=== PATIENT | male | born 1960 | race Caucasian/White ===

== ENCOUNTER 2020-12-22 11:53 | Inpatient (IN) | payer OTHER ==
[2020-12-22 12:20] VITALS: BMI 27.4
[2020-12-22] MEDS ORDERED: NICOTINE POLACRILEX 2 MG GUM BUC PRN (13:38)
[2020-12-22] MEDS ORDERED: ONDANSETRON *ODT* 4 MG TABLET SL PRN (13:38)
[2020-12-22] MEDS ORDERED: MAGNESIUM CITRATE 300 ML BOTTLE PO PRN (13:38)
[2020-12-22] MEDS ORDERED: MENTHOL/PHENOL 1 EACH UD MM PRN (13:38)
[2020-12-22] MEDS ORDERED: IBUPROFEN 400 MG TABLET (FP) PO PRN (13:38)
[2020-12-22] MEDS ORDERED: BISMUTH SUBSALICYLATE 524 MG/30 ML PO PRN (13:38)
[2020-12-22] MEDS ORDERED: MAGNESIUM HYDROX 2400MG/30ML ORAL SUSPENSION 30 ML CUP PO PRN (13:38)
[2020-12-22] MEDS ORDERED: ACETAMINOPHEN 325 MG TABLET (FP) PO PRN ×2 (13:38)
[2020-12-22] MEDS ORDERED: MAG HYDROX/AL HYDROX/SIMETH 30 ML UNIT-DOSE CUP PO PRN (13:38)
[2020-12-22] MEDS ORDERED: methaDONE HCL 10 MG TABLET (FOR DETOX USE ONLY) PO ONE (13:38)
[2020-12-22] MEDS ORDERED: cloNIDine HCL 0.1 MG TABLET PO PRN (13:38)
[2020-12-22] MEDS: hydrOXYzine PAMOATE 25 MG CAPSULE (FP) PO SCH ×3 (19:17→22:27)
[2020-12-22] MEDS ORDERED: methaDONE HCL 10 MG TABLET (FOR DETOX USE ONLY) ONE (19:18)
[2020-12-22] MEDS: NICOTINE 21 MG/24 HOURS TOPICAL PATCH TD SCH (19:21)
[2020-12-22] MEDS: INSULIN SLIDING SCALE (NOVOLOG) 1 VIAL SQ SCH ×2 (19:32→22:29)
[2020-12-22] MEDS: THIAMINE HCL 100 MG TABLET (FP) PO SCH (22:27)
[2020-12-22] MEDS: MONTELUKAST NA 10 MG TABLET PO SCH (22:27)
[2020-12-22] MEDS: GABAPENTIN 300 MG CAPSULE PO SCH (22:27)
[2020-12-22] MEDS: INSULIN (LEVEMIR) 100 UNITS/ML UNITS SQ SCH (22:28)
[2020-12-22] MEDS: MELATONIN 5 MG TABLETS PO SCH (22:31)
[2020-12-22] MEDS: ATORVASTATIN CA 80 MG TABLET (FP) PO SCH (22:33)
[2020-12-22] MEDS: ALBUTEROL SO4 HFA INHALER IH PRN (22:36)
[2020-12-23] MEDS: hydrOXYzine PAMOATE 25 MG CAPSULE (FP) PO SCH ×5 (07:03→22:09)
[2020-12-23] MEDS: GABAPENTIN 300 MG CAPSULE PO SCH ×3 (07:03→22:09)
[2020-12-23] MEDS: INSULIN SLIDING SCALE (NOVOLOG) 1 VIAL SQ SCH ×4 (07:23→23:06)
[2020-12-23] MEDS: metFORMIN HCL 500 MG TABLET (FP) PO SCH ×2 (07:23→17:58)
[2020-12-23] MEDS: sitaGLIPtin PHOSPHATE 50 MG TABLET PO SCH ×2 (07:23→17:58)
[2020-12-23] MEDS ORDERED: methaDONE HCL 10 MG TABLET (FOR DETOX USE ONLY) ONE (09:05)
[2020-12-23] MEDS: PANTOPRAZOLE 40 MG TABLET PO SCH (10:37)
[2020-12-23] MEDS: PRENATAL VITAMINS W/ FOLIC ACID TABLET (FP) PO SCH (10:37)
[2020-12-23] MEDS: NICOTINE 21 MG/24 HOURS TOPICAL PATCH TD SCH (10:38)
[2020-12-23] MEDS: ASPIRIN 81 MG CHEWABLE TABLETS PO SCH (10:38)
[2020-12-23 11:54] LABS: HEMATOCRIT 44.7 % (35.4-49); MCH 31.3 pg (25.7-33.7); MCHC 33.5 g/dl (32.0-35.9); MEAN CELL VOLUME 93.3 fl (80-96); MEAN PLT VOLUME 8.5 fl (7.5-11.1); PLATELET COUNT 310 10^3/uL (134-434); RBC 4.79 M/mm3 (4.00-5.60); RDW 14.5 % (11.9-15.9); WHITE BLOOD COUNT 10.6 K/mm3 (4.0-10.0)
[2020-12-23] MEDS ORDERED: INSULIN SLIDING SCALE (NOVOLOG) 1 VIAL SQ ONE (11:56)
[2020-12-23 12:01] LABS: ALBUMIN 3.6 g/dl (3.4-5.0); BLOOD UREA NITROGEN 12.5 mg/dL (7-18); CALCIUM 9.2 mg/dL (8.5-10.1)
[2020-12-23 12:05] LABS: CREATININE 0.7 mg/dL (0.55-1.3)
[2020-12-23 12:06] LABS: TOT PROT 6.9 g/dl (6.4-8.2)
[2020-12-23] MEDS ORDERED: ATORVASTATIN CA 40 MG TABLET (FP) ONE (21:22)
[2020-12-23] MEDS: THIAMINE HCL 100 MG TABLET (FP) PO SCH (22:08)
[2020-12-23] MEDS: ATORVASTATIN CA 80 MG TABLET (FP) PO SCH (22:08)
[2020-12-23] MEDS: MONTELUKAST NA 10 MG TABLET PO SCH (22:09)
[2020-12-23] MEDS: MELATONIN 5 MG TABLETS PO SCH (22:11)
[2020-12-23] MEDS: ALBUTEROL SO4 HFA INHALER IH PRN (22:12)
[2020-12-23] MEDS: INSULIN (LEVEMIR) 100 UNITS/ML UNITS SQ SCH (23:07)
[2020-12-24] MEDS: GABAPENTIN 300 MG CAPSULE PO SCH ×3 (05:37→21:53)
[2020-12-24] MEDS: hydrOXYzine PAMOATE 25 MG CAPSULE (FP) PO SCH ×5 (05:38→21:53)
[2020-12-24] MEDS: sitaGLIPtin PHOSPHATE 50 MG TABLET PO SCH ×2 (06:47→17:54)
[2020-12-24] MEDS: metFORMIN HCL 500 MG TABLET (FP) PO SCH ×2 (06:47→17:54)
[2020-12-24] MEDS: INSULIN SLIDING SCALE (NOVOLOG) 1 VIAL SQ SCH ×4 (06:47→22:46)
[2020-12-24] MEDS ORDERED: INSULIN SLIDING SCALE (NOVOLOG) 1 VIAL SQ ONE (07:30)
[2020-12-24] MEDS ORDERED: methaDONE HCL 10 MG TABLET (FOR DETOX USE ONLY) PO ONE (10:00)
[2020-12-24] MEDS: METHOCARBAMOL 500 MG TABLET PO PRN (10:06)
[2020-12-24] MEDS: ESCITALOPRAM OXALATE 10 MG TABLET PO SCH (10:06)
[2020-12-24] MEDS: PANTOPRAZOLE 40 MG TABLET PO SCH (10:06)
[2020-12-24] MEDS: ASPIRIN 81 MG CHEWABLE TABLETS PO SCH (10:06)
[2020-12-24] MEDS: PRENATAL VITAMINS W/ FOLIC ACID TABLET (FP) PO SCH (10:07)
[2020-12-24] MEDS: NICOTINE 21 MG/24 HOURS TOPICAL PATCH TD SCH (10:07)
[2020-12-24] MEDS ORDERED: COLLOIDAL OATMEAL 1 BAR EACH TP PRN (11:14)
[2020-12-24] MEDS: NICOTINE 10 MG CARTRIDGE (INHALER) IH PRN (13:18)
[2020-12-24] MEDS: PATIENT'S OWN MEDICATION (NON-FORMULARY) (Empagliflozin [Jardiance] 10 MG Tablet) PO SCH (15:08)
[2020-12-24] MEDS: clonazePAM 0.5 MG ODT TABLETS SL PRN (17:57)
[2020-12-24] MEDS: MELATONIN 5 MG TABLETS PO SCH (21:53)
[2020-12-24] MEDS: ATORVASTATIN CA 80 MG TABLET (FP) PO SCH (21:53)
[2020-12-24] MEDS: MONTELUKAST NA 10 MG TABLET PO SCH (21:53)
[2020-12-24] MEDS: THIAMINE HCL 100 MG TABLET (FP) PO SCH (21:53)
[2020-12-24] MEDS: INSULIN (LEVEMIR) 100 UNITS/ML UNITS SQ SCH (22:46)
[2020-12-25] MEDS: GABAPENTIN 300 MG CAPSULE PO SCH ×3 (06:05→22:02)
[2020-12-25] MEDS: metFORMIN HCL 500 MG TABLET (FP) PO SCH ×2 (06:05→17:28)
[2020-12-25] MEDS: hydrOXYzine PAMOATE 25 MG CAPSULE (FP) PO SCH ×5 (06:05→22:02)
[2020-12-25] MEDS: sitaGLIPtin PHOSPHATE 50 MG TABLET PO SCH ×2 (06:05→18:16)
[2020-12-25] MEDS: clonazePAM 0.5 MG ODT TABLETS SL PRN (06:07)
[2020-12-25] MEDS: INSULIN SLIDING SCALE (NOVOLOG) 1 VIAL SQ SCH ×4 (07:22→22:03)
[2020-12-25] MEDS ORDERED: methaDONE HCL 10 MG TABLET (FOR DETOX USE ONLY) ONE (08:58)
[2020-12-25] MEDS: ASPIRIN 81 MG CHEWABLE TABLETS PO SCH (09:49)
[2020-12-25] MEDS: NICOTINE 21 MG/24 HOURS TOPICAL PATCH TD SCH (09:51)
[2020-12-25] MEDS: PRENATAL VITAMINS W/ FOLIC ACID TABLET (FP) PO SCH (09:51)
[2020-12-25] MEDS: ESCITALOPRAM OXALATE 10 MG TABLET PO SCH (09:51)
[2020-12-25] MEDS: PANTOPRAZOLE 40 MG TABLET PO SCH (09:52)
[2020-12-25] MEDS: NICOTINE 10 MG CARTRIDGE (INHALER) IH PRN (12:39)
[2020-12-25] MEDS: THIAMINE HCL 100 MG TABLET (FP) PO SCH (22:02)
[2020-12-25] MEDS: MONTELUKAST NA 10 MG TABLET PO SCH (22:02)
[2020-12-25] MEDS: MELATONIN 5 MG TABLETS PO SCH (22:02)
[2020-12-25] MEDS: ATORVASTATIN CA 80 MG TABLET (FP) PO SCH (22:02)
[2020-12-25] MEDS: INSULIN (LEVEMIR) 100 UNITS/ML UNITS SQ SCH (22:03)
[2020-12-25] MEDS: METHOCARBAMOL 500 MG TABLET PO PRN (22:04)
[2020-12-25] MEDS: ALBUTEROL SO4 HFA INHALER IH PRN (22:05)
[2020-12-26] MEDS: GABAPENTIN 300 MG CAPSULE PO SCH ×3 (06:14→22:16)
[2020-12-26] MEDS: hydrOXYzine PAMOATE 25 MG CAPSULE (FP) PO SCH ×5 (06:14→22:17)
[2020-12-26] MEDS: metFORMIN HCL 500 MG TABLET (FP) PO SCH ×2 (06:16→17:44)
[2020-12-26] MEDS: INSULIN SLIDING SCALE (NOVOLOG) 1 VIAL SQ SCH ×4 (06:18→22:18)
[2020-12-26] MEDS: sitaGLIPtin PHOSPHATE 50 MG TABLET PO SCH ×2 (07:00→17:53)
[2020-12-26] MEDS ORDERED: methaDONE HCL 10 MG TABLET (FOR DETOX USE ONLY) PO ONE (10:00)
[2020-12-26] MEDS: PANTOPRAZOLE 40 MG TABLET PO SCH (10:28)
[2020-12-26] MEDS: ESCITALOPRAM OXALATE 10 MG TABLET PO SCH (10:28)
[2020-12-26] MEDS: METHOCARBAMOL 500 MG TABLET PO PRN (10:28)
[2020-12-26] MEDS: ASPIRIN 81 MG CHEWABLE TABLETS PO SCH (10:28)
[2020-12-26] MEDS: NICOTINE 21 MG/24 HOURS TOPICAL PATCH TD SCH (10:30)
[2020-12-26] MEDS: PRENATAL VITAMINS W/ FOLIC ACID TABLET (FP) PO SCH (10:30)
[2020-12-26 10:32] LABS: HEMATOCRIT 41.3 % (35.4-49); HEMOGLOBIN 13.7 GM/dL (11.7-16.9); MCHC 33.2 g/dl (32.0-35.9); MEAN CELL VOLUME 93.5 fl (80-96); MEAN PLT VOLUME 8.7 fl (7.5-11.1); PLATELET COUNT 290 10^3/uL (134-434); RBC 4.42 M/mm3 (4.00-5.60); RDW 14.4 % (11.9-15.9); WHITE BLOOD COUNT 8.4 K/mm3 (4.0-10.0)
[2020-12-26] MEDS: MELATONIN 5 MG TABLETS PO SCH (22:16)
[2020-12-26] MEDS: THIAMINE HCL 100 MG TABLET (FP) PO SCH (22:16)
[2020-12-26] MEDS: ATORVASTATIN CA 80 MG TABLET (FP) PO SCH (22:16)
[2020-12-26] MEDS: MONTELUKAST NA 10 MG TABLET PO SCH (22:17)
[2020-12-26] MEDS: INSULIN (LEVEMIR) 100 UNITS/ML UNITS SQ SCH (22:18)
[2020-12-27] MEDS: GABAPENTIN 300 MG CAPSULE PO SCH ×2 (05:44→14:32)
[2020-12-27] MEDS: hydrOXYzine PAMOATE 25 MG CAPSULE (FP) PO SCH ×3 (05:57→14:32)
[2020-12-27] MEDS: INSULIN SLIDING SCALE (NOVOLOG) 1 VIAL SQ SCH ×2 (06:33→12:04)
[2020-12-27] MEDS: metFORMIN HCL 500 MG TABLET (FP) PO SCH (06:33)
[2020-12-27] MEDS: sitaGLIPtin PHOSPHATE 50 MG TABLET PO SCH (06:33)
[2020-12-27 09:08] VITALS: TEMP 96.8
[2020-12-27] MEDS: ESCITALOPRAM OXALATE 10 MG TABLET PO SCH (10:32)
[2020-12-27] MEDS: PRENATAL VITAMINS W/ FOLIC ACID TABLET (FP) PO SCH (10:32)
[2020-12-27] MEDS: NICOTINE 21 MG/24 HOURS TOPICAL PATCH TD SCH (10:32)
[2020-12-27] MEDS: ASPIRIN 81 MG CHEWABLE TABLETS PO SCH (10:32)
[2020-12-27] MEDS: PANTOPRAZOLE 40 MG TABLET PO SCH (10:32)
[2020-12-27 13:06] VITALS: BP 107/61; PULSE 67
== END 2020-12-27 14:18 | disposition other institution (70) | DRG 897 ==
LOC: YASAS 11:53 → Y3N 16:13 → UNDODISIN 12-27 08:25
PROVIDERS: ADMIT Allergy & Immunology; ATTEND Allergy & Immunology
PROC: HZ2ZZZZ Detoxification Services for Substance Abuse Treatment (ICD-10-PCS; principal; 2020-12-22)
DX: F11.23 Opioid dependence with withdrawal (principal); F17.210 Nicotine dependence, cigarettes, uncomplicated; F32.9 Major depressive disorder, single episode, unspecified; F43.10 Post-traumatic stress disorder, unspecified; I10 Essential (primary) hypertension; J44.9 Chronic obstructive pulmonary disease, unspecified; E11.9 Type 2 diabetes mellitus without complications; Z79.4 Long term (current) use of insulin; Z56.0 Unemployment, unspecified
CPT/HCPCS: 36415; 80053; 82962; 85027; 86780; 93005; 93010; C9803; U0003; U0005

== ENCOUNTER 2020-12-27 14:29 | Inpatient (IN) | payer OTHER ==
[2020-12-27] MEDS ORDERED: MENTHOL/PHENOL 1 EACH UD MM PRN (15:34)
[2020-12-27] MEDS ORDERED: LOPERAMIDE HCL 2 MG CAPSULE PO PRN (15:34)
[2020-12-27] MEDS ORDERED: NICOTINE 10 MG CARTRIDGE (INHALER) IH PRN (15:34)
[2020-12-27] MEDS ORDERED: guaiFENesin 200 MG/10 ML 10 ML UNIT-DOSE CUPS PO PRN (15:34)
[2020-12-27] MEDS ORDERED: P-EPHED 60MG/TRIPROLIDI 2.5MG TABLET PO PRN (15:34)
[2020-12-27] MEDS ORDERED: MAG HYDROX/AL HYDROX/SIMETH 30 ML UNIT-DOSE CUP PO PRN (15:34)
[2020-12-27] MEDS ORDERED: MAGNESIUM HYDROX 2400MG/30ML ORAL SUSPENSION 30 ML CUP PO PRN (15:34)
[2020-12-27] MEDS ORDERED: MAGNESIUM CITRATE 300 ML BOTTLE PO PRN (15:34)
[2020-12-27] MEDS ORDERED: COLLOIDAL OATMEAL 1 BAR EACH TP PRN (15:39)
[2020-12-27] MEDS ORDERED: ALBUTEROL SO4 HFA INHALER IH PRN (15:40)
[2020-12-27] MEDS ORDERED: INSULIN SLIDING SCALE (NOVOLOG) 1 VIAL SQ SCH (16:30)
[2020-12-27] MEDS: INSULIN SLIDING SCALE (NOVOLOG) 1 VIAL SQ SCH (16:52)
[2020-12-27] MEDS: metFORMIN HCL 500 MG TABLET (FP) PO SCH (16:53)
[2020-12-27] MEDS ORDERED: INSULIN (NOVOLOG) ASPART 100 UNITS/ML 10ML VIAL ONE (16:54)
[2020-12-27] MEDS: METHOCARBAMOL 500 MG TABLET PO SCH ×2 (17:40→21:09)
[2020-12-27] MEDS ORDERED: ATORVASTATIN CA 40 MG TABLET (FP) ONE (20:08)
[2020-12-27] MEDS: THIAMINE HCL 100 MG TABLET (FP) PO SCH (21:09)
[2020-12-27] MEDS: GABAPENTIN 300 MG CAPSULE PO SCH (21:09)
[2020-12-27] MEDS: INSULIN (LEVEMIR) 100 UNITS/ML UNITS SQ SCH (21:09)
[2020-12-27] MEDS: ATORVASTATIN CA 80 MG TABLET (FP) PO SCH (21:10)
[2020-12-27] MEDS: MELATONIN 5 MG TABLETS PO SCH (21:10)
[2020-12-28] MEDS: sitaGLIPtin PHOSPHATE 50 MG TABLET PO SCH (06:50)
[2020-12-28] MEDS: metFORMIN HCL 500 MG TABLET (FP) PO SCH ×2 (06:50→16:43)
[2020-12-28] MEDS: GABAPENTIN 300 MG CAPSULE PO SCH ×3 (06:50→21:33)
[2020-12-28] MEDS: METHOCARBAMOL 500 MG TABLET PO SCH ×4 (06:55→21:33)
[2020-12-28] MEDS: INSULIN SLIDING SCALE (NOVOLOG) 1 VIAL SQ SCH ×3 (07:44→16:40)
[2020-12-28] MEDS: CHOLECALCIFEROL (VIT D3) 1,000 UNIT (25 MCG) TABLET PO SCH (10:24)
[2020-12-28] MEDS: ASPIRIN 81 MG CHEWABLE TABLETS PO SCH (10:24)
[2020-12-28] MEDS: ESCITALOPRAM OXALATE 10 MG TABLET PO SCH (10:24)
[2020-12-28] MEDS: NICOTINE 21 MG/24 HOURS TOPICAL PATCH TD SCH (10:24)
[2020-12-28] MEDS: PANTOPRAZOLE 40 MG TABLET PO SCH (10:24)
[2020-12-28] MEDS: PRENATAL VITAMINS W/ FOLIC ACID TABLET (FP) PO SCH (10:24)
[2020-12-28] MEDS ORDERED: INSULIN (NOVOLOG) ASPART 100 UNITS/ML 10ML VIAL ONE ×2 (11:56→16:48)
[2020-12-28] MEDS ORDERED: ATORVASTATIN CA 40 MG TABLET (FP) ONE (19:04)
[2020-12-28] MEDS: ATORVASTATIN CA 80 MG TABLET (FP) PO SCH (21:33)
[2020-12-28] MEDS: MELATONIN 5 MG TABLETS PO SCH (21:33)
[2020-12-28] MEDS: THIAMINE HCL 100 MG TABLET (FP) PO SCH (21:33)
[2020-12-28] MEDS: hydrOXYzine PAMOATE 25 MG CAPSULE (FP) PO PRN (21:36)
[2020-12-28] MEDS: INSULIN (LEVEMIR) 100 UNITS/ML UNITS SQ SCH (21:40)
[2020-12-29] MEDS ORDERED: PT OWN MED DRAWER 7, Y5N ONE ×2 (03:00→20:56)
[2020-12-29] MEDS: GABAPENTIN 300 MG CAPSULE PO SCH ×3 (06:16→21:21)
[2020-12-29] MEDS: sitaGLIPtin PHOSPHATE 50 MG TABLET PO SCH (06:17)
[2020-12-29] MEDS: metFORMIN HCL 500 MG TABLET (FP) PO SCH ×2 (06:17→16:41)
[2020-12-29] MEDS: INSULIN SLIDING SCALE (NOVOLOG) 1 VIAL SQ SCH ×3 (06:17→16:42)
[2020-12-29] MEDS: PANTOPRAZOLE 40 MG TABLET PO SCH (09:55)
[2020-12-29] MEDS: CHOLECALCIFEROL (VIT D3) 1,000 UNIT (25 MCG) TABLET PO SCH (09:55)
[2020-12-29] MEDS: PRENATAL VITAMINS W/ FOLIC ACID TABLET (FP) PO SCH (09:55)
[2020-12-29] MEDS: ASPIRIN 81 MG CHEWABLE TABLETS PO SCH (09:55)
[2020-12-29] MEDS: ESCITALOPRAM OXALATE 10 MG TABLET PO SCH (09:55)
[2020-12-29] MEDS: NICOTINE 21 MG/24 HOURS TOPICAL PATCH TD SCH (09:55)
[2020-12-29] MEDS: EMPAGLIFLOZIN (NF) 10 MG TABLET PO SCH (09:55)
[2020-12-29] MEDS: METHOCARBAMOL 500 MG TABLET PO SCH ×4 (09:55→21:23)
[2020-12-29] MEDS: hydrOXYzine PAMOATE 25 MG CAPSULE (FP) PO PRN ×2 (13:54→21:24)
[2020-12-29] MEDS ORDERED: ATORVASTATIN CA 40 MG TABLET (FP) ONE (18:54)
[2020-12-29] MEDS: MELATONIN 5 MG TABLETS PO SCH (21:21)
[2020-12-29] MEDS: THIAMINE HCL 100 MG TABLET (FP) PO SCH (21:21)
[2020-12-29] MEDS: ATORVASTATIN CA 80 MG TABLET (FP) PO SCH (21:21)
[2020-12-29] MEDS: INSULIN (LEVEMIR) 100 UNITS/ML UNITS SQ SCH (21:23)
[2020-12-29] MEDS ORDERED: INSULIN (LEVEMIR) 100 UNITS/ML UNITS SQ ONE (21:23)
[2020-12-30] MEDS: GABAPENTIN 300 MG CAPSULE PO SCH ×3 (06:05→21:14)
[2020-12-30] MEDS: metFORMIN HCL 500 MG TABLET (FP) PO SCH ×2 (06:06→16:38)
[2020-12-30] MEDS: sitaGLIPtin PHOSPHATE 50 MG TABLET PO SCH (06:06)
[2020-12-30] MEDS: hydrOXYzine PAMOATE 25 MG CAPSULE (FP) PO PRN (06:07)
[2020-12-30] MEDS: INSULIN SLIDING SCALE (NOVOLOG) 1 VIAL SQ SCH ×3 (07:16→16:39)
[2020-12-30] MEDS: PRENATAL VITAMINS W/ FOLIC ACID TABLET (FP) PO SCH (09:55)
[2020-12-30] MEDS: NICOTINE 21 MG/24 HOURS TOPICAL PATCH TD SCH (09:55)
[2020-12-30] MEDS: PANTOPRAZOLE 40 MG TABLET PO SCH (09:55)
[2020-12-30] MEDS: ASPIRIN 81 MG CHEWABLE TABLETS PO SCH (09:55)
[2020-12-30] MEDS: CHOLECALCIFEROL (VIT D3) 1,000 UNIT (25 MCG) TABLET PO SCH (09:55)
[2020-12-30] MEDS: METHOCARBAMOL 500 MG TABLET PO SCH ×4 (09:55→21:14)
[2020-12-30] MEDS: EMPAGLIFLOZIN (NF) 10 MG TABLET PO SCH (09:55)
[2020-12-30] MEDS: ESCITALOPRAM OXALATE 10 MG TABLET PO SCH (09:55)
[2020-12-30] MEDS: ACETAMINOPHEN 325 MG TABLET (FP) PO PRN ×2 (09:55→14:11)
[2020-12-30] MEDS ORDERED: ATORVASTATIN CA 40 MG TABLET (FP) ONE (18:58)
[2020-12-30] MEDS: MELATONIN 5 MG TABLETS PO SCH (21:14)
[2020-12-30] MEDS: ATORVASTATIN CA 80 MG TABLET (FP) PO SCH (21:14)
[2020-12-30] MEDS: THIAMINE HCL 100 MG TABLET (FP) PO SCH (21:14)
[2020-12-30] MEDS: IBUPROFEN 400 MG TABLET (FP) PO PRN (21:15)
[2020-12-30] MEDS: INSULIN (LEVEMIR) 100 UNITS/ML UNITS SQ SCH (21:17)
[2020-12-31] MEDS: hydrOXYzine PAMOATE 25 MG CAPSULE (FP) PO PRN (01:19)
[2020-12-31] MEDS: ACETAMINOPHEN 325 MG TABLET (FP) PO PRN (01:19)
[2020-12-31] MEDS: GABAPENTIN 300 MG CAPSULE PO SCH (06:17)
[2020-12-31] MEDS: INSULIN SLIDING SCALE (NOVOLOG) 1 VIAL SQ SCH ×2 (06:18→11:56)
[2020-12-31] MEDS: metFORMIN HCL 500 MG TABLET (FP) PO SCH (06:18)
[2020-12-31] MEDS: sitaGLIPtin PHOSPHATE 50 MG TABLET PO SCH (06:18)
[2020-12-31] MEDS: IBUPROFEN 400 MG TABLET (FP) PO PRN (06:20)
[2020-12-31 06:45] VITALS: TEMP 97.5
[2020-12-31 09:24] VITALS: BP 134/74; PULSE 66
[2020-12-31] MEDS: PRENATAL VITAMINS W/ FOLIC ACID TABLET (FP) PO SCH (09:46)
[2020-12-31] MEDS: CHOLECALCIFEROL (VIT D3) 1,000 UNIT (25 MCG) TABLET PO SCH (09:46)
[2020-12-31] MEDS: ESCITALOPRAM OXALATE 10 MG TABLET PO SCH (09:47)
[2020-12-31] MEDS: METHOCARBAMOL 500 MG TABLET PO SCH (09:47)
[2020-12-31] MEDS: NICOTINE 21 MG/24 HOURS TOPICAL PATCH TD SCH (09:47)
[2020-12-31] MEDS: EMPAGLIFLOZIN (NF) 10 MG TABLET PO SCH (09:47)
[2020-12-31] MEDS: PANTOPRAZOLE 40 MG TABLET PO SCH (09:47)
[2020-12-31] MEDS: ASPIRIN 81 MG CHEWABLE TABLETS PO SCH (09:48)
== END 2020-12-31 11:55 | disposition home or self-care (01) | DRG 897 ==
LOC: YASAS 14:29 → Y3W 14:30
PROVIDERS: ADMIT Allergy & Immunology; ATTEND Allergy & Immunology
PROC: HZ2ZZZZ Detoxification Services for Substance Abuse Treatment (ICD-10-PCS; principal; 2020-12-27)
DX: F11.20 Opioid dependence, uncomplicated (principal); F43.10 Post-traumatic stress disorder, unspecified; F32.9 Major depressive disorder, single episode, unspecified; I10 Essential (primary) hypertension; E11.9 Type 2 diabetes mellitus without complications; Z79.4 Long term (current) use of insulin
CPT/HCPCS: 82962